=== PATIENT | female | born 1950 ===

== ENCOUNTER 2020-12-27 05:05 | Day surgery (SDC) | payer OTHER ==
[~2020-12-27 05:05] MED LIST: LOSARTAN POTAS100 MG PO; TOPROL XL50 M1 PO
== END 2020-12-27 12:50 | disposition home or self-care (01) ==
LOC: CIR.AMB 05:05
PROVIDERS: ATTEND Specialist
DX: N87.1 Moderate cervical dysplasia (principal); Z20.822 Contact with and (suspected) exposure to COVID-19